=== PATIENT | female | born 1965 ===

== ENCOUNTER 2018-01-10 08:36 | Emergency (ER) | payer OTHER ==
[2018-01-10 09:15] VITALS: RESP 18; TEMP 98
--- NOTE | 2018-01-10 10:33 | ED PDOC ---
HPI: Back Time Seen by Provider: 01/10/18 10:22 Chief Complaint (Nursing): Back Pain Chief Complaint (Provider): back pain History Per: Patient (52 y/o female with back pain left sided ongoing after lifting box 4 days ago. Use of motrin without relief. No paresthesias/loss of strengh/urinary or rectal incontinence.) Past Medical History Reviewed: Historical Data, Nursing Documentation, Vital Signs Vital Signs: Last Vital Signs Temp 98 F 01/10/18 09:12 Pulse 77 01/10/18 09:12 Resp 18 01/10/18 09:12 BP 153/92 H 01/10/18 09:12 Pulse Ox 98 01/10/18 09:12 - Family History Family History: States: No Known Family Hx - Home Medications Home Medications: Ambulatory Orders Medication Instructions Recorded Naproxen 375 mg PO Q8 PRN #21 tablet 01/10/18 diaZEpam [Valium] 5 mg PO Q8 PRN #6 tab 01/10/18 - Allergies Allergies/Adverse Reactions: Allergies Allergy/AdvReac Type Severity Reaction Status Date / Time No Known Allergies Allergy Verified 01/10/18 10:18 Review of Systems ROS Statement: Except As Marked, All Systems Reviewed And Found Negative Musculoskeletal: Positive for: Back Pain Physical Exam - Reviewed Nursing Documentation Reviewed: Yes Vital Signs Reviewed: Yes - Physical Exam Appears: Positive for: Well, Non-toxic, No Acute Distress Head Exam: Positive for: ATRAUMATIC, NORMAL INSPECTION, NORMOCEPHALIC Skin: Positive for: Normal Color, Warm, DRY Eye Exam: Positive for: EOMI, Normal appearance, PERRL ENT: Positive for: Normal ENT Inspection Neck: Positive for: Normal, Painless ROM Cardiovascular/Chest: Positive for: Regular Rate, Rhythm Respiratory: Positive for: CNT, Normal Breath Sounds Gastrointestinal/Abdominal: Positive for: Normal Exam, Soft Back: Positive for: Normal Inspection, Vertebral Tenderness (left paralumbar tenderness. No flank tenderness. No vertebral tenderness) Extremity: Positive for: Normal ROM Neurologic/Psych: Positive for: Alert, Oriented - Laboratory Results Urine POC: Negative - ECG O2 Sat by Pulse Oximetry: 98 - Progress ED Course And Treament: valium 5mg x 1 dose toradol 30 mg IM x 1 dose Disposition - Clinical Impression Clinical Impression: Back strain - Patient ED Disposition Is Patient to be Admitted: No - Disposition Disposition: Routine/Home Disposition Time: :34 Condition: FAIR Prescriptions: diaZEpam [Valium] 5 mg PO Q8 PRN #6 tab PRN Reason: Muscle Spasm Naproxen 375 mg PO Q8 PRN #21 tablet PRN Reason: Pain, Moderate (4-7) Instructions: Low Back Pain in Adults, Muscle Strain (DC), Hamstring Stretches Forms: [facility] ED School/Work Excuse Print Language: PALEST[place]IAN
[2018-01-10 12:28] VITALS: BP 148/90; PULSE 74; O2SAT 99
== END 2018-01-10 12:09 | disposition home or self-care (01) ==
LOC: H.ER 08:36
DX: S39.012A Strain of muscle, fascia and tendon of lower back, initial encounter (principal); X50.9XXA Other and unspecified overexertion or strenuous movements or postures, initial encounter; Y92.89 Other specified places as the place of occurrence of the external cause
CPT/HCPCS: 81025; 96372; 99283; J1885